=== PATIENT | female | born 1965 | race Caucasian/White ===

== ENCOUNTER 2016-08-20 18:43 | Inpatient (IN) | payer BC ==
[2016-08-20] MEDS ORDERED: SODIUM CHLORIDE 0.9% 1,000 ML IV STA (18:51)
[2016-08-20] MEDS ORDERED: LABETALOL SYRINGE 5 MG/ML IVP STA (18:51)
[2016-08-20] MEDS ORDERED: ASPIRIN 325 MG TAB PO STA (19:00)
[2016-08-20] MEDS ORDERED: MECLIZINE 12.5 MG TAB PO STA (19:01)
--- NOTE | 2016-08-20 19:04 | ED ---
General Adult HPI - General Chief complaint: Dizziness Stated complaint: dizziness, headache, numbness Time Seen by Provider: 08/20/16 18:51 Source: patient, family, RN notes reviewed, old records reviewed Mode of arrival: wheelchair Limitations: no limitations - History of Present Illness Initial comments: This is a 31-year-old female here for evaluation of neurological complaint. Patient has dizziness with collapse and fall secondary severe dizziness. The room is spinning around she is nauseous with no vomiting. Patient does have history of high blood pressure high cholesterol. Patient's blood pressure severely elevated today and she states this never been that high. Patient has had episodes like this in the past which she just, nor ignored one on record with. Today was worse to the point where she was again unable to walk, room was spinning around. - Related Data Home Medications Medication Instructions Recorded Confirmed Acetaminophen [Tylenol] 500 mg PO Q4-6H PRN 07/16/15 08/20/16 Ibuprofen [Advil] 200 mg PO Q8HR PRN 07/16/15 08/20/16 Levothyroxine Sodium [Synthroid] 125 mcg PO DAILY 07/16/15 08/20/16 Allergies Allergy/AdvReac Type Severity Reaction Status Date / Time No Known Allergies Allergy Verified 08/20/16 18:49 Review of Systems ROS Statement: Those systems with pertinent positive or pertinent negative responses have been documented in the HPI. ROS Other: All systems not noted in ROS Statement are negative. Past Medical History Past Medical History: Thyroid Disorder History of Any Multi-Drug Resistant Organisms: None Reported Past Surgical History: No Surgical Hx Reported Past Psychological History: No Psychological Hx Reported Smoking Status: Former smoker Past Alcohol Use History: Occasional Past Drug Use History: None Reported General Exam - General Exam Comments Initial Comments: NIH of 0, no nystagmus noted Limitations: no limitations General appearance: alert, in no apparent distress Head exam: Present: atraumatic, normocephalic, normal inspection Eye exam: Present: normal appearance, PERRL, EOMI. Absent: scleral icterus, conjunctival injection, periorbital swelling ENT exam: Present: normal exam, mucous membranes moist Neck exam: Present: normal inspection. Absent: tenderness, meningismus, lymphadenopathy Respiratory exam: Present: normal lung sounds bilaterally. Absent: respiratory distress, wheezes, rales, rhonchi, stridor Cardiovascular Exam: Present: regular rate, normal rhythm, normal heart sounds. Absent: systolic murmur, diastolic murmur, rubs, gallop, clicks GI/Abdominal exam: Present: soft, normal bowel sounds. Absent: distended, tenderness, guarding, rebound, rigid Extremities exam: Present: normal inspection, full ROM, normal capillary refill. Absent: tenderness, pedal edema, joint swelling, calf tenderness Back exam: Present: normal inspection Neurological exam: Present: alert, oriented X3, CN II-XII intact Psychiatric exam: Present: normal affect, normal mood Skin exam: Present: warm, dry, intact, normal color. Absent: rash Course Vital Signs 08/20/16 18:46 Temperature 97.0 F L Pulse Rate 92 Respiratory 18 Rate Blood Pressure 200/91 O2 Sat by Pulse 100 Oximetry - Reevaluation(s) Reevaluation #1: 08/20/16 19:03 Patient gotten up and attempted to walk, patient very dizzy and unsteady in her gait EKG Findings - EKG Comments: EKG Findings:: EKG shows normal sinus rhythm rate of 64, VT 154, QRS 86, QTC 369 Medical Decision Making - Medical Decision Making 51 female ER for evaluation of dizziness and vertigo dizziness SOA she's had before but was severe today bringing her to her knees. Patient was unable to walk. Patient saw having difficulty walking. Patient does have high blood pressure high cholesterol as severely elevated blood pressure today. Patient will be admitted to the hospital for neurological evaluation, given aspirin Disposition Clinical Impression: CVA (cerebral vascular accident), Vertigo, Hypertensive emergency Disposition: ADMITTED IP TO THIS [facility] Condition: Fair Referrals: Manish Plasencia Jr, [Primary Care Provider] - 1-2 days
[2016-08-20] MEDS ORDERED: hydrALAZINE HCL 20 MG/ML 1 ML VIAL IVP PRN (19:18)
[2016-08-20] MEDS: SODIUM CHLORIDE 0.9% 1,000 ML IV SCH (19:35)
[2016-08-20 19:42] LABS: Basophils % (A) 1 %; CH 32.1; CHCM 34.1; Eosinophils # (A) 0.1 k/uL (0-0.7); Eosinophils % (A) 2 %; HCT 41.2 % (34.0-46.0); HDW 2.47; Luc # (Auto) 0.13; Luc % (Auto) 3; Lymphocytes # (A) 1.4 k/uL (1.0-4.8); Lymphocytes % (A) 30 %; MCHC 33.9 g/dL (31.0-37.0); MCV 94.5 fL (80.0-100.0); Mean Platelet Volume 9.7; Monocytes # (A) 0.2 k/uL (0-1.0); Monocytes % (A) 5 %; Neutrophils # (A) 2.7 k/uL (1.3-7.7); Neutrophils % (A) 60 %; RBC 4.36 m/uL (3.80-5.40); RDW 13.4 % (11.5-15.5); WBC 4.5 k/uL (3.8-10.6)
[2016-08-20 19:50] LABS: ALT 28 U/L (9-52); AST 21 U/L (14-36); Alkaline Phosphatase 68 U/L (38-126); Anion Gap 10 mmol/L; Blood Urea Nitrogen 17 mg/dL (7-17); Carbon Dioxide 26 mmol/L (22-30); Chloride 107 mmol/L (98-107); Glucose 110 mg/dL (74-99); Magnesium 1.9 mg/dL (1.6-2.3); Non-African American GFR(MDRD) >60 (>60 ml/min/1.73 sqM); Phosphorous 3.2 mg/dL (2.5-4.5); Potassium 3.6 mmol/L (3.5-5.1); Sodium 143 mmol/L (137-145); Total Bilirubin 0.5 mg/dL (0.2-1.3); Total Protein 7.2 g/dL (6.3-8.2)
[2016-08-20 19:52] LABS: Partial Thromboplastin Time 25.7 sec (22.0-30.0)
[2016-08-20 19:54] LABS: Prothrombin Time 10.3 sec (9.0-12.0)
--- NOTE | 2016-08-20 20:01 | CT ---
EXAMINATION TYPE: CT brain wo con DATE OF EXAM: 08/20/2016 7:55 PM COMPARISON: NONE HISTORY: Dizziness and NGUYEN. CT DLP: 977.7 mGycm Automated exposure control for dose reduction was used. FINDINGS: There is no acute intracranial hemorrhage, mass effect, or midline shift identified. The ventricles and sulci are within normal limits in size. The globes are intact and the visualized sinuses are moi ar. IMPRESSION: No acute intracranial hemorrhage, mass effect, or midline shift is seen.
[2016-08-20 20:06] LABS: Creatine Kinase 116 U/L (30-135)
[2016-08-20 20:19] LABS: Creatine Kinase MB 0.8 ng/mL (0.0-2.4); Troponin I <0.012 ng/mL (0.000-0.034)
[2016-08-20 21:23] VITALS: BMI 25.4
[2016-08-21] MEDS: SODIUM CHLORIDE 0.9% 1,000 ML IV SCH ×2 (05:15→13:57)
[2016-08-21 08:34] LABS: Cholesterol 246 mg/dL (<200); HDL Cholesterol 56 mg/dL (40-60); Triglycerides 134 mg/dL (<150)
[2016-08-21] MEDS ORDERED: Potassium Replacement Protocol 1 EACH MISC MISCELLANE PRN (09:18)
[2016-08-21] MEDS ORDERED: ACETAMINOPHEN TAB 325 MG TAB PO PRN (09:19)
--- NOTE | 2016-08-21 09:25 | US ---
EXAMINATION TYPE: US carotid duplex BILAT DATE OF EXAM: 08/21/2016 9:05 AM COMPARISON: NONE CLINICAL HISTORY: Stenosis. dizziness and vertigo per patient EXAM MEASUREMENTS: RIGHT: Peak Systolic Velocity (PSV) cm/sec ----- Right CCA: 65.3 ----- Right ICA: 87.1 ----- Right ECA: 46.2 ICA/CCA ratio: 1.3 RIGHT: End Diastole cm/sec ----- Right CCA: 20.0 ----- Right ICA: 42.2 ----- Right ECA: 13.5 LEFT: Peak Systolic Velocity (PSV) cm/sec ----- Left CCA: 108.3 ----- Left ICA: 83.4 ----- Left ECA: 79.0 ICA/CCA ratio: 0.8 LEFT: End Diastole cm/sec ----- Left CCA: 46.2 ----- Left ICA: 39.5 ----- Left ECA: 23.0 VERTEBRALS (direction of flow): Right Vertebral: Antegrade Left Vertebral: Antegrade Grayscale, color Doppler, spectral Doppler imaging performed of the carotid arteries. IMPRESSION: No hemodynamic significant stenosis of the proximal internal carotid arteries bilaterall y by Doppler criteria, and indirect measurement of carotid stenosis
[2016-08-21] MEDS ORDERED: POTASSIUM CHLORIDE ER 20 MEQ TAB.ER PO SCH (10:00)
[2016-08-21] MEDS: LEVOTHYROXINE 125 MCG TAB PO SCH (10:58)
--- NOTE | 2016-08-21 11:50 | P.HPIM ---
History of Present Illness H&P Date: 08/21/16 Chief Complaint: Headache with vertigo This is a pleasant 51-year-old female, patient of my nurse practitioner, Jane Knox, who experienced severe headache while out shopping one day ago. She reports the headache was severe pressure-like in the occiput. She indicates she became very dizzy as well with this. The symptoms abated slightly, but the vertigo continued. She describes everything was spinning with any motion. She also reports a generalized sense of body numbness. She denies any localized weakness or trouble speaking. The symptoms continued and she came to the emergency room to be seen and evaluated. She was found to have significantly elevated blood pressure this time. She has no history of hypertension. She does have a past history of migraine headache, does not have one in years. She is now being seen for further evaluation. Overnight she is been pain-free. Vertigo free. Review of Systems All systems: negative Constitutional: Denies chills, Denies fever Eyes: denies blurred vision, denies pain Ears, nose, mouth and throat: Denies headache, Denies sore throat Cardiovascular: Denies chest pain, Denies shortness of breath Respiratory: Denies cough Gastrointestinal: Denies abdominal pain, Denies diarrhea, Denies nausea, Denies vomiting Genitourinary: Denies dysuria, Denies hematuria Musculoskeletal: Denies myalgias Integumentary: Denies pruritus, Denies rash Neurological: Denies numbness, Denies weakness Psychiatric: Denies anxiety, Denies depression Endocrine: Denies fatigue, Denies weight change Past Medical History Past Medical History: Hyperlipidemia, Neurologic Disorder (Questionable migraine history), Thyroid Disorder History of Any Multi-Drug Resistant Organisms: None Reported Past Surgical History: No Surgical Hx Reported Past Anesthesia/Blood Transfusion Reactions: No Reported Reaction Past Psychological History: No Psychological Hx Reported Smoking Status: Former smoker Past Alcohol Use History: Occasional Past Drug Use History: None Reported - Past Family History Father Family Medical History: Myocardial Infarction ([place]) Mother Family Medical History: Liver Disease Medications and Allergies Home Medications Medication Instructions Recorded Confirmed Type Levothyroxine Sodium [Synthroid] 125 mcg PO DAILY 07/16/15 08/20/16 History Naproxen Sodium [Aleve] 220 mg PO DAILY PRN 08/20/16 08/20/16 History Allergies Allergy/AdvReac Type Severity Reaction Status Date / Time No Known Allergies Allergy Verified 08/20/16 19:50 Physical Exam Vitals: Vital Signs Temp Pulse Pulse Resp BP BP Pulse Ox 08/21/16 08:35 97 F L 62 12 131/67 94 L 08/21/16 04:00 97.1 F L 68 18 115/53 97 08/21/16 00:00 97.1 F L 78 18 131/69 97 08/20/16 21:16 96.1 F L 70 18 148/74 98 08/20/16 20:50 96.1 F L 70 18 148/74 98 08/20/16 20:04 85 14 100 08/20/16 19:53 68 16 137/75 100 08/20/16 19:36 68 16 130/68 100 08/20/16 19:31 77 16 171/76 100 Intake and Output 08/20/16 08/21/16 08/21/16 22:59 06:59 14:59 Intake Total 800 Balance 800 Intake: Intake, IV Titration 800 Amount Sodium Chloride 0.9% 1, 800 000 ml @ 100 mls/hr IV . Q10H [facility] Rx#:[id number] Other: # Voids 1 Weight 63.2 kg 63.2 kg GENERAL: Well-appearing, well-nourished and in no acute distress. HEAD: Atraumatic, normocephalic. EYES: Pupils equal round and reactive to light, extraocular movements intact, sclera anicteric, conjunctiva are normal. There is right gaze nystagmus worse than left ENT:nares patent, oropharynx clear without exudates. Moist mucous membranes. NECK: Normal range of motion, supple without lymphadenopathy or JVD, no thyromegaly LUNGS: Breath sounds clear to auscultation bilaterally and equal. No wheezes rales or rhonchi. HEART: Regular rate and rhythm without murmurs, rubs or gallops.S1S2 Normal ABDOMEN: Soft, nontender, normoactive bowel sounds. No guarding, no rebound. No masses appreciated. EXTREMITIES: Normal range of motion, no pitting or edema. No clubbing or cyanosis. NEUROLOGICAL: Cranial nerves II through XII grossly intact. Normal speech, normal gait. Strength is 5 out of 5 in both upper and lower extremities. PSYCH: Normal mood, normal affect. SKIN: Warm, Dry, normal turgor, no rashes or lesions noted. Results CBC & Chem 7: 08/20/16 19:29 08/20/16 19:29 Labs: Abnormal Lab Results - Last 24 Hours (Table) 08/20/16 08/21/16 Range/Units 19:29 08:11 Glucose 110 H (74-99) mg/dL Cholesterol 246 H (<200) mg/dL LDL Cholesterol, Calc 163 H (0-99) mg/dL Thrombosis Risk Factor Assmnt - DVT/VTE Prophylaxis DVT/VTE Prophylaxis: Mechanical Prophylaxis ordered (SCDs and Jobst hose are in place) - Choose All That Apply Each Factor Represents 1 point: Age 41-60 years Thrombosis Risk Factor Assessment Total Risk Factor Score: 1 Thrombosis Risk Factor Assessment Level: Low Risk Assessment and Plan (1) Hyperlipemia Status: Chronic (2) Hypothyroidism Status: Chronic (3) CVA (cerebral vascular accident) Status: Acute (4) Hypertensive emergency Status: Acute (5) Vertigo Status: Acute Plan: Vertigo with headache, suspect CVA, present on admission, symptoms resolved: CT scan of the brain was negative, carotid Dopplers negative, await 2-D echo and MRI/MRA brain, await neurological consultation. Continue aspirin Accelerated hypertension, present admission, resolved: Continue metoprolol. Hyperlipidemia: She not started treatment given to her by a nurse practitioner, I'll add atorvastatin, 40 mg Hypothyroidism: She'll continue on Synthroid, will check a TSH and free T4 DVT prophylaxis: She'll continue on SCDs and Jobst stockinette's. GI prophylaxis: Add famotidine. We'll await her upcoming tests and pension consultant recommendations. She'll be reevaluated in the next 24 hours.
[2016-08-21 12:52] LABS: Potassium 4.4 mmol/L (3.5-5.1)
[2016-08-21] MEDS: FAMOTIDINE 20 MG TAB PO SCH (13:47)
[2016-08-21] MEDS: METOPROLOL SUCCINATE (ER) 50 MG TAB.ER.24H PO SCH (13:47)
--- NOTE | 2016-08-21 14:05 | P.CNNES ---
History of Present Illness Consult date: 08/21/16 Requesting physician: Madi Hernandez Reason for Consult: CVA Chief complaint: Dizziness History of Present Illness: patient is a 31-year-old female being consult on by neurology for dizziness with possible CVA. Patient has dizziness with collapse and fall secondary to severe dizziness. Patient states the room is spinning around her. He stated that she was nauseous with no vomiting prior to arrival DDD. Patient does have a history of hypertension and hypercholesterolemia. Patient's blood pressure was severely elevated on presentation at the ED. Blood pressure was greater than 200. Patient states she has had episodes like this in the past which she just ignored. Prior to presenting at the ED this episode was the worst she had experienced. Patient describes dizziness with exertion as well as bilateral global head pain described as a pressure-type squeezing pain. She states she is noncompliant with her medications to manage her blood pressure and her cholesterol as provided by her primary care provider. She further states these incidents have been occurring for greater than 3 months. In the past she has used over-the- counter medications and analgesia. states she does have a headache/migraine history from her teens and early 20s but the migraine level headaches had stopped years ago. When contacting the patient today, the patient denies any dizziness or head pain. Patient is alert oriented 3, supine in bed resting. She is in no acute distress. Review of Systems all systems not noted in HPI previously above are considered negative. Past Medical History Past Medical History: Hyperlipidemia, Neurologic Disorder (Questionable migraine history), Thyroid Disorder History of Any Multi-Drug Resistant Organisms: None Reported Past Surgical History: No Surgical Hx Reported Past Anesthesia/Blood Transfusion Reactions: No Reported Reaction Past Psychological History: No Psychological Hx Reported Smoking Status: Former smoker Past Alcohol Use History: Occasional Past Drug Use History: None Reported - Past Family History Father Family Medical History: Myocardial Infarction ([place]) Mother Family Medical History: Liver Disease Medications and Allergies Home Medications Medication Instructions Recorded Confirmed Type Levothyroxine Sodium [Synthroid] 125 mcg PO DAILY 07/16/15 08/20/16 History Naproxen Sodium [Aleve] 220 mg PO DAILY PRN 08/20/16 08/20/16 History Allergies Allergy/AdvReac Type Severity Reaction Status Date / Time No Known Allergies Allergy Verified 08/20/16 19:50 Physical Examination - Vital Signs Vital Signs: Vital Signs Temp Pulse Pulse Resp BP BP Pulse Ox 08/21/16 08:35 97 F L 62 12 131/67 94 L 08/21/16 04:00 97.1 F L 68 18 115/53 97 08/21/16 00:00 97.1 F L 78 18 131/69 97 08/20/16 21:16 96.1 F L 70 18 148/74 98 08/20/16 20:50 96.1 F L 70 18 148/74 98 08/20/16 20:04 85 14 100 08/20/16 19:53 68 16 137/75 100 08/20/16 19:36 68 16 130/68 100 08/20/16 19:31 77 16 171/76 100 Intake and Output 08/20/16 08/21/16 08/21/16 22:59 06:59 14:59 Intake Total 800 Balance 800 Intake: Intake, IV Titration 800 Amount Sodium Chloride 0.9% 1, 800 000 ml @ 100 mls/hr IV . Q10H [facility] Rx#:[id number] Other: # Voids 1 Weight 63.2 kg 63.2 kg Results - Laboratory Findings CBC and BMP: 08/20/16 19:29 08/21/16 12:35 Abnormal Lab Findings: Abnormal Labs 08/20/16 08/21/16 08/21/16 19:29 08:11 12:35 Glucose 110 H Cholesterol 246 H LDL Cholesterol, Calc 163 H TSH 6.610 H Assessment and Plan (1) Hypertensive emergency Status: Acute (2) Hyperlipemia Status: Chronic Plan: 1. Headache secondary to Hypertensive crisis: Patient symptoms and physical exam are more reflective headache likely secondary to hypertensive crisis versus TIA/CVA. Patient's blood pressure was greater than 200. She states these headaches occur when she is under exertion but resolved when she relaxes. CT of the brain was negative along with carotid Doppler. EEG is pending. Patient had no remaining symptoms on exam. Recommend strict blood pressure control. Follow-up outpatient once blood pressure is under control. Patient may be cleared from a neurological standpoint if her EEG returns within normal limits and if MRI of the brain is unremarkable. If EEG is still pending but taken, the patient can be discharged and followed up outpatient in our office within 10-14 days, but MRI must be taken and results read prior to discharge. 2. Hypercholesterolemia: Patient is known to have hypercholesterolemia has noted by her lipid panel. Primary care provider started Lipitor 40 mg. Continue Lipitor at existing dose and frequency at discharge. Recheck lipid levels in 90 days. Continue 81 mg aspirin daily outpatient on an ongoing basis. Status: As noted above I discussed the patient's pertinent medical information with Dr. Portillo. He agrees with the plan of care as implemented.
[2016-08-21] MEDS: ASPIRIN 325 MG TAB PO SCH (22:19)
[2016-08-22] MEDS: SODIUM CHLORIDE 0.9% 1,000 ML IV SCH ×2 (06:22→10:35)
[2016-08-22] MEDS: LEVOTHYROXINE 125 MCG TAB PO SCH (06:23)
[2016-08-22 06:43] LABS: Basophils % (A) 1 %; CH 31.3; CHCM 33.3; Eosinophils # (A) 0.1 k/uL (0-0.7); Eosinophils % (A) 3 %; HDW 2.49; Luc # (Auto) 0.17; Luc % (Auto) 4; Lymphocytes # (A) 1.3 k/uL (1.0-4.8); Lymphocytes % (A) 31 %; MCH 31.5 pg (25.0-35.0); MCHC 33.4 g/dL (31.0-37.0); MCV 94.5 fL (80.0-100.0); Mean Platelet Volume 9.9; Monocytes # (A) 0.2 k/uL (0-1.0); Monocytes % (A) 5 %; Neutrophils # (A) 2.3 k/uL (1.3-7.7); Neutrophils % (A) 56 %; RBC 4.76 m/uL (3.80-5.40); RDW 13.4 % (11.5-15.5); WBC (Perox) 3.94
[2016-08-22 06:54] LABS: Anion Gap 9 mmol/L; Blood Urea Nitrogen 13 mg/dL (7-17); Calcium 9.3 mg/dL (8.4-10.2); Carbon Dioxide 26 mmol/L (22-30); Chloride 107 mmol/L (98-107); Glucose 100 mg/dL (74-99); Non-African American GFR(MDRD) >60 (>60 ml/min/1.73 sqM); Potassium 4.5 mmol/L (3.5-5.1); Sodium 142 mmol/L (137-145)
--- NOTE | 2016-08-22 09:02 | MR ---
EXAMINATION TYPE: MR brain wo/w con DATE OF EXAM: 08/22/2016 8:17 AM COMPARISON: NONE HISTORY: Vertigo TECHNIQUE: Multiplanar, multiecho imaging of the brain was obtained with and without intravenous adm inistration of 13 mL intravenous MultiHance. FINDINGS: Midline structures are unremarkable. There is a normal craniocervical junction. Echoplanar diffusion imaging is normal. There are normal vascular flow voids. The orbits are unremarkable. There is no evidence of a CP angle mass lesion. There is mucoperiosteal disease involving the left maxillary sinus. There is no focal lesion, mass effect or midline shift identified. I do not see evidence of intracran ial blood. Following the intravenous administration of gadolinium, I do not see evidence of abnormal enhancement . IMPRESSION: 1. NO ACUTE INTRACRANIAL ABNORMALITY. 2. 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
[2016-08-22] MEDS: FAMOTIDINE 20 MG TAB PO SCH (09:32)
[2016-08-22] MEDS: ASPIRIN 325 MG TAB PO SCH (09:32)
[2016-08-22] MEDS: METOPROLOL SUCCINATE (ER) 50 MG TAB.ER.24H PO SCH (09:32)
[2016-08-22 09:40] VITALS: TEMP 97
[2016-08-22 12:23] VITALS: BP 126/72; PULSE 52; RESP 16
--- NOTE | 2016-08-22 12:51 | ECHOF ---
Referral Reason:Thrombus MEASUREMENTS -------- HEIGHT: 157.5 cm WEIGHT: 62.6 kg BP: 112/58 RVIDd: 2.7 cm (< 3.3) IVSd: 0.9 cm (0.6 - 1.1) LVIDd: 4.3 cm (3.9 - 5.3) LVPWd: 0.9 cm (0.6 - 1.1) IVSs: 1.5 cm LVIDs: 2.8 cm LVPWs: 1.1 cm LA Diam: 2.9 cm (2.7 - 3.8) LAESV Index (A-L): 17.67 ml/m Ao Diam: 2.5 cm (2.0 - 3.7) AV Cusp: 1.4 cm (1.5 - 2.6) LA Diam: 2.7 cm (2.7 - 3.8) MV EXCURSION: 6.985 mm (> 18.000) MV EF SLOPE: 50 mm/s (70 - 150) EPSS: 0.4 cm MV E Moses: 0.85 m/s MV DecT: 223 ms MV A Moses: 0.66 m/s MV E/A Ratio: 1.28 FINDINGS -------- Resting bradycardia (HR<60bpm). This was a technically good study. Left ventricular wall thickness is normal. Overall left ventricular systolic function is normal with, an EF between 55 - 60 %. The right ventricle is normal in size. Normal LA size by volume 22+/-6 ml/m2. The right atrium is normal in size. Aortic valve is trileaflet and is mildly thickened. The mitral valve leaflets are mildly thickened. Mild mitral annular calcification present. There is trace mitral regurgitation. Trace tricuspid regurgitation present. The pulmonic valve was not well visualized. The aortic root size is normal. Normal inferior vena cava with normal inspiratory collapse consistent with estimated right atrial pressure of 5 mmHg. There is no pericardial effusion. CONCLUSIONS -------- 1. Resting bradycardia (HR<60bpm). 2. Mild mitral annular calcification present. 3. There is trace mitral regurgitation. 4. Trace tricuspid regurgitation present. 5. The pulmonic valve was not well visualized. 6. The aortic root size is normal. 7. Normal inferior vena cava with normal inspiratory collapse consistent with estimated right atrial pressure of 5 mmHg. 8. There is no pericardial effusion. 9. This was a technically good study. 10. Left ventricular wall thickness is normal. 11. Overall left ventricular systolic function is normal with, an EF between 55 - 60 %. 12. The right ventricle is normal in size. 13. Normal LA size by volume 22+/-6 ml/m2. 14. The right atrium is normal in size. 15. Aortic valve is trileaflet and is mildly thickened. 16. The mitral valve leaflets are mildly thickened. DELINQUENCY PREVENTION OFFICER: Ronan Cabrera RDCS
--- NOTE | 2016-08-22 13:42 | P.DS ---
Providers Date of admission: 08/20/16 19:00 Expected date of discharge: 08/22/16 Attending physician: Laron Erickson Consults: Neurology Primary care physician: [facility] Hospital Course: Patient is a 51-year-old female, patient of Jane Knox nurse practitioner in the outpatient setting, with medical history significant for hyperlipidemia, hypertension, hypothyroidism, and migraines. Patient presented to the emergency department complaints of headache and dizziness stating that the room started to spin around her associated with nausea but no vomiting. In the emergency department patient was found to have hypertensive urgency with systolic blood pressure of 200. Patient reports similar episodes in the past but not quite as severe as this time. Patient did report noncompliance with prescribed medications prior to admission. CAT scan of the brain was negative along with carotid Doppler. MRI of the brain with no acute intracranial abnormality. Echocardiogram with Doppler showed preserved LV function with EF between 55-60%. Patient was evaluated and cleared for discharge by neurology with follow-up in the outpatient setting. EEG taken but pending prior to discharge. Patient improved significantly during her hospital stay with no further symptoms of headache or vertigo. Patient was felt stable for discharge with close follow-up in the outpatient setting. Discharge diagnoses: 1. Hyperlipidemia. 2. Hypothyroidism. 3. Hypertensive emergency, present on admission, resolved. 4. Vertigo suspect secondary to hypertensive emergency, resolved. 5. History of migraines. 6. History of hypertension. The above impression and plan have been discussed and directed by Dr. Plasencia. Genesis TOUSSAINT acting as scribe for Dr. Plasencia. Pertinent Studies: Brain CT; EKG; carotid Doppler study; brain MRI; echocardiogram with Doppler Patient Condition at Discharge: Fair Plan - Discharge Summary New Discharge Prescriptions: Aspirin 81 mg PO DAILY #30 chewable Atorvastatin [Lipitor] 40 mg PO HS #30 tablet Metoprolol Succinate (ER) [Toprol XL] 50 mg PO DAILY #30 tab.er.24h Discharge Medication List Levothyroxine Sodium [Synthroid] 125 mcg PO DAILY 07/16/15 [History] Aspirin 81 mg PO DAILY #30 chewable 08/22/16 [Rx] Atorvastatin [Lipitor] 40 mg PO HS #30 tablet 08/22/16 [Rx] Metoprolol Succinate (ER) [Toprol XL] 50 mg PO DAILY #30 tab.er.24h 08/22/16 [Rx ] Follow up Appointment(s)/Referral(s): Manish Plasencia Jr, DO [Primary Care Provider] - 08/24/16 8:45 am Jessy Portillo MD [STAFF PHYSICIAN] - 10 Days (OFFICES WILL CALL WITH AN APPOINTMENT DATE AND TIME) Patient Instructions/Handouts: Vertigo (DC), Hypertensive Crisis (DC) Discharge Disposition: HOME SELF-CARE Pending Studies Pending Results: EEG
--- NOTE | 2016-08-22 19:41 | P.PN ---
Subjective Principal diagnosis: Dizziness patient is a 51-year-old female being followed by neurology for dizziness. Patient has disease with collapse and fall secondary to severe dizziness. Patient states that the room was spinning around her. She stated that she was nauseous with no vomiting prior to arrival at the ED. Patient does have a history of hypertension and hypercholesterolemia. Patient's blood pressure was severely elevated on presentation of the ED. Blood pressure was greater than 200. Patient stated that she had episodes like this in the past which she just ignored. Prior to presenting at the ED this episode was the worse she had experienced. Patient described dizziness with exertion as well as bilateral global head pain described as a pressure-type squeezing pain. She states she is noncompliant with her medications to manage her blood pressure and her cholesterol as provided by her primary care provider. She further states events have been occurring for greater than 3 months. In the past she used [id number] medications and analgesia. States she does have a headache/migraine history from her teens and early 20s but the migraine level headaches have stopped years ago. On contact today, the patient was supine in bed in no acute distress and did not have any dizziness or head pain. Her daughter was at her bedside. Patient is alert and oriented 3. She states she is back to baseline. Objective - Vital Signs Vital signs: Vital Signs Temp 97.0 F L 08/22/16 12:00 Pulse 52 L 08/22/16 12:00 Resp 16 08/22/16 12:00 BP 126/72 08/22/16 12:00 Pulse Ox 99 08/22/16 12:00 Intake & Output 08/22/16 08/22/16 08/23/16 06:59 18:59 06:59 Intake Total 1280 Balance 1280 Weight 62.8 kg Intake: IV 900 Sodium Chloride 0.9% 1, 900 000 ml @ 100 mls/hr IV . Q10H ZELDA Rx#:[id number] Oral 380 Other: # Voids 2 - Exam Constitutional: AOx3, cooperative Head: NC/AT Throat: Supple, no masses Respiratory: No increased work of breathing Cardiac: Regular rate and Rhythm GI: non tender, non distended Musculoskeletal: Vp Home Health strengths are equal bilaterally 5/5, Lower extremity strengths are equal bilaterally at 5/5. Neurological: CN II-XII in tact, patient was AOx3, speech and language are normal, no unilateralizing weakness, no seizure activity note on physical exam. Sensation was normal. Integementary: no rash, no erythema Psychiatric: mood and affect appropriate - Labs CBC & Chem 7: 08/22/16 06:20 08/22/16 06:20 Labs: Abnormal Lab Results - Last 24 Hours (Table) 08/22/16 Range/Units 06:20 Glucose 100 H (74-99) mg/dL Assessment and Plan (1) Hypertensive emergency Status: Acute (2) Hyperlipemia Status: Chronic Plan: 1. Headache secondary to Hypertensive crisis: Patient symptoms and physical exam are more reflective headache likely secondary to hypertensive crisis versus TIA/CVA. Patient's blood pressure was greater than 200. She states these headaches occur when she is under exertion but resolved when she relaxes. CT of the brain was negative along with carotid Doppler. EEG is pending. Patient had no remaining symptoms on exam. Recommend strict blood pressure control. Follow-up outpatient once blood pressure is under control. Patient may be cleared from a neurological standpoint if her EEG returns within normal limits MRI of the brain was unremarkable for any acute process. Chronic sinus process noted. Patient was referred to primary care provider. 2. Hypercholesterolemia: Patient is known to have hypercholesterolemia as noted by her lipid panel. Primary care provider started Lipitor 40 mg. Continue Lipitor at existing dose and frequency at discharge. Recheck lipid levels in 90 days. Continue 81 mg aspirin daily outpatient on an ongoing basis. Status: Patient can be cleared for discharge from a neurological standpoint. I discussed the patient's pertinent medical information with Dr. Portillo. He agrees with the plan of care as implemented.
--- NOTE | 2016-08-23 14:29 | EEG ---
DATE OF SERVICE: 08/22/2016 INDICATIONS FOR EXAMINATION: Stroke and dizziness. AGE: 51Y DESCRIPTION OF PROCEDURE: This EEG was performed using a 21 channel digital electroencephalograph, following international 10-20 system. DESCRIPTION OF THE RECORDING: From the beginning of the tracing, with the patient's eyes closed, the background rhythm was mostly consisting of 8-9 Hz alpha frequency in the posterior occipital leads. No obvious asymmetry was seen. Photic stimulation was performed with good driving response seen. No pathological waves were elicited. Hyperventilation was not performed. Rare movement artifacts are seen. The patient remains awake throughout the tracing. No epileptiform discharges are seen. Her EKG lead showed regular rate and rhythm. INTERPRETATION: This awake EEG can be considered within normal limits. There was no asymmetry seen. No epileptiform discharges were noticed. The absence of epileptiform discharges does not rule out the diagnosis of epilepsy. Therefore, clinical correlation is recommended.
== END 2016-08-22 14:14 | disposition home or self-care (01) | DRG 305 ==
LOC: EC 18:43 → 6SEL 19:00
PROVIDERS: ADMIT Family Medicine; ATTEND Family Medicine
DX: I16.1 Hypertensive emergency (principal); E03.9 Hypothyroidism, unspecified; I10 Essential (primary) hypertension; E78.5 Hyperlipidemia, unspecified; E78.00 Pure hypercholesterolemia, unspecified; R51 Headache; Z91.14 Patient's other noncompliance with medication regimen; Z87.891 Personal history of nicotine dependence; Z79.899 Other long term (current) drug therapy; Z82.49 Family history of ischemic heart disease and other diseases of the circulatory system
CPT/HCPCS: 36415; 70450; 70553; 80048; 80053; 80061; 82550; 82553; 83090; 83735; 84100; 84132; 84439; 84443; 84484; 85025; 85610; 85730; 93005; 93306; 93880; 95816; 96374; 99285

== ENCOUNTER → 2016-10-14 | Outpatient (CLI) | payer BC ==
--- NOTE | 2016-10-14 14:39 | MM ---
Reason for exam: screening (asymptomatic). Last mammogram was performed 2 years and 7 months ago. History: Patient is postmenopausal. Benign left US cyst aspiration ea add of the left breast, June 22, 2007. Benign right US cyst aspiration ea add of the right breast, June 22, 2007. Benign right US cyst aspiration ea add of the right breast, June 22, 2007. Benign right US cyst aspiration ea add of the right breast, June 22, 2007. Benign right US cyst aspiration ea add of the right breast, June 22, 2007. Benign left US cyst aspiration of the left breast, June 22, 2007. Benign right US cyst aspiration of the right breast, June 22, 2007. Cyst aspiration of the right breast. Physical Findings: A clinical breast exam by your physician is recommended on an annual basis and results should be correlated with mammographic findings. MG Screening Mammo w CAD Bilateral CC and MLO view(s) were taken. Prior study comparison: March 14, 2014, right breast MG work up mamm w CAD RT. March 07, 2014, bilateral MG screening mammo w CAD. The breast tissue is heterogeneously dense. This may lower the sensitivity of mammography. Focal asymmetry in the upper outer left breast. This finding is changed when compared with previous exams. ASSESSMENT: Incomplete: need additional imaging evaluation, BI-RAD 0 RECOMMENDATION: Special view mammogram of the left breast. If lesion persists on supplemental views, image directed ultrasound is recommended. [facility] will attempt to contact patient to return for supplemental views and ultrasound if indicated.
== END | disposition home or self-care (01) ==
LOC: RADMAMWWP 07:38
PROVIDERS: ATTEND Family Medicine
DX: Z12.31 Encounter for screening mammogram for malignant neoplasm of breast (principal); R92.2 Inconclusive mammogram

== ENCOUNTER → 2016-10-25 | Outpatient (CLI) | payer BC ==
--- NOTE | 2016-10-25 08:36 | MM ---
Reason for exam: additional evaluation requested from abnormal screening. Last mammogram was performed less than 1 month ago. History: Patient is postmenopausal. Benign left US cyst aspiration ea add of the left breast, June 22, 2007. Benign right US cyst aspiration ea add of the right breast, June 22, 2007. Benign right US cyst aspiration ea add of the right breast, June 22, 2007. Benign right US cyst aspiration ea add of the right breast, June 22, 2007. Benign right US cyst aspiration ea add of the right breast, June 22, 2007. Benign left US cyst aspiration of the left breast, June 22, 2007. Benign right US cyst aspiration of the right breast, June 22, 2007. Cyst aspiration of the right breast. Physical Findings: Nurse did not find any significant physical abnormalities on exam. MG Work Up Mamm w CAD LT LM, spot compression CC, and spot compression MLO view(s) were taken of the left breast. Prior study comparison: October 14, 2016, bilateral MG screening mammo w CAD. March 14, 2014, right breast MG work up mamm w CAD RT. March 07, 2014, bilateral MG screening mammo w CAD. The breast tissue is heterogeneously dense. This may lower the sensitivity of mammography. There is no discrete abnormality. No significant new findings when compared with previous films. These results were verbally communicated with the patient and result sheet given to the patient on 10/25/16. ASSESSMENT: Benign, BI-RAD 2 RECOMMENDATION: Return to routine screening mammogram schedule for both breasts. Back on schedule.
== END | disposition home or self-care (01) ==
LOC: RADMAMWWP 07:31
PROVIDERS: ATTEND Family Medicine
DX: R92.8 Other abnormal and inconclusive findings on diagnostic imaging of breast (principal)

== ENCOUNTER → 2018-05-14 | Outpatient (CLI) | payer BC ==
--- NOTE | 2018-05-17 13:38 | MM ---
Reason for exam: screening (asymptomatic). Last mammogram was performed 1 year and 7 months ago. History: Patient is postmenopausal. Benign left US cyst aspiration ea add of the left breast, June 22, 2007. Benign right US cyst aspiration ea add of the right breast, June 22, 2007. Benign right US cyst aspiration ea add of the right breast, June 22, 2007. Benign right US cyst aspiration ea add of the right breast, June 22, 2007. Benign right US cyst aspiration ea add of the right breast, June 22, 2007. Benign left US cyst aspiration of the left breast, June 22, 2007. Benign right US cyst aspiration of the right breast, June 22, 2007. Cyst aspiration of the right breast. Physical Findings: A clinical breast exam by your physician is recommended on an annual basis and results should be correlated with mammographic findings. MG Screening Mammo w CAD Bilateral CC and MLO view(s) were taken. Prior study comparison: October 25, 2016, left breast MG work up mamm w CAD LT. October 14, 2016, bilateral MG screening mammo w CAD. The breast tissue is heterogeneously dense. This may lower the sensitivity of mammography. No significant changes when compared with prior studies. ASSESSMENT: Benign, BI-RAD 2 RECOMMENDATION: Routine screening mammogram of both breasts in 1 year.
== END ==
LOC: RADMAMWWP 08:34
PROVIDERS: ATTEND Family Medicine
DX: Z12.31 Encounter for screening mammogram for malignant neoplasm of breast (principal)
CPT/HCPCS: 77067

== ENCOUNTER → 2019-10-18 | Outpatient (CLI) | payer BC ==
--- NOTE | 2019-10-18 13:40 | EST ---
EXERCISE STRESS DATE OF SERVICE: 10/18/2019 AGE: 54 SEX: Fe HT: 62" WT: 148 lbs PROTOCOL: Stress Echo STAGE: 2 DURATION OF EXERCISE: 5:53 minutes HEART RATE REST: 88 BLOOD PRESSURE REST: 126/85 MAXIMUM HEART RATE ACHIEVED: 154 MAXIMUM BLOOD PRESSURE: 203/161 85% MPHR: 139 100% MPHR: 164 METS: 7.1 INDICATIONS: Shortness of breath, vertigo. RESULTS: Baseline EKG revealed normal sinus rhythm with inferolateral nonspecific ST-T abnormality. She walked on standard Terrell protocol for 5 minutes 53 seconds achieved a maximal heart rate of 160 beats per minute which is well above 85% of predicted maximal. She developed some fatigue and shortness of breath but did not have any angina. Rare PVCs were noted initially. EKG revealed more prominent inferolateral ST-segment depression, but given her resting EKG changes, these are considered inconclusive findings. The patient did not have angina. By EKG criteria this is an inconclusive exercise stress test with limited exercise capacity. Baseline echo images revealed normal wall motion wall thickening of all segments. At peak exercise, there was good augmentation of left ventricular wall motion and wall thickening of all segments suggesting that there is no evidence of any stress-induced ischemia on this study. IMPRESSION: 1. Limited exercise capacity, inconclusive stress test by EKG criteria because of resting EKG changes. 2. Normal stress echocardiogram without evidence of ischemia. MMODL / IJN: [id number] /
== END | disposition home or self-care (01) ==
LOC: RADNMMAIN 09:51
PROVIDERS: ATTEND Family Medicine
DX: R94.39 Abnormal result of other cardiovascular function study (principal)
CPT/HCPCS: 93351

== ENCOUNTER → 2019-11-21 | Outpatient (CLI) | payer BC ==
--- NOTE | 2019-11-25 10:38 | MM ---
Reason for exam: screening (asymptomatic). Last mammogram was performed 1 year and 6 months ago. History: Patient is postmenopausal. Benign left US cyst aspiration ea add of the left breast, June 22, 2007. Benign right US cyst aspiration ea add of the right breast, June 22, 2007. Benign right US cyst aspiration ea add of the right breast, June 22, 2007. Benign right US cyst aspiration ea add of the right breast, June 22, 2007. Benign right US cyst aspiration ea add of the right breast, June 22, 2007. Benign left US cyst aspiration of the left breast, June 22, 2007. Benign right US cyst aspiration of the right breast, June 22, 2007. Cyst aspiration of the right breast. Physical Findings: A clinical breast exam by your physician is recommended on an annual basis and results should be correlated with mammographic findings. MG Screening Mammo w CAD Bilateral CC and MLO view(s) were taken. Prior study comparison: May 14, 2018, bilateral MG screening mammo w CAD. October 25, 2016, left breast MG work up mamm w CAD LT. The breast tissue is heterogeneously dense. This may lower the sensitivity of mammography. There is no discrete abnormality. ASSESSMENT: Negative, BI-RAD 1 RECOMMENDATION: Routine screening mammogram of both breasts in 1 year.
== END | disposition home or self-care (01) ==
LOC: RADMAMWWP 16:01
PROVIDERS: ATTEND Family Medicine
DX: Z12.31 Encounter for screening mammogram for malignant neoplasm of breast (principal)
CPT/HCPCS: 77067

== ENCOUNTER 2020-08-28 04:13 | Emergency (ER) | payer BC ==
[2020-08-28] MEDS ORDERED: METOCLOPRAMIDE 5 MG/ML 2 ML VIAL ONE (05:30)
[2020-08-28] MEDS ORDERED: diphenhydrAMINE 50 MG/ML 1 ML VIAL ONE (05:30)
[2020-08-28] MEDS ORDERED: KETOROLAC 15 MG/ML 1 ML VIAL ONE (05:30)
--- NOTE | 2020-08-28 10:04 | CT ---
EXAM: CT Head Without Intravenous Contrast CLINICAL HISTORY: migraine TECHNIQUE: Axial computed tomography images of the head/brain without intravenous contrast. CTDI is 49.27 mGy and DLP is 1129.4 mGy-cm. This CT exam was performed using one or more of the following dose reduction techniques: automated exposure control, adjustment of the mA and/or kV according to patient size, and/or use of iterative reconstruction technique. COMPARISON: No relevant prior studies available. FINDINGS: Brain: Unremarkable. No acute intracranial hemorrhage, edema or abnormal mass-effect. Ventricles: Unremarkable. No ventriculomegaly. Bones/joints: Unremarkable. No acute fracture. Soft tissues: Unremarkable. Sinuses: Unremarkable as visualized. No acute sinusitis. Mastoid air cells: Unremarkable as visualized. No mastoid effusion. IMPRESSION: Negative head/brain CT.
[2020-08-28] MEDS ORDERED: SODIUM CHLORIDE 0.9% 1,000 ML BAG ONE (23:59)
== END 2020-08-28 07:50 | disposition home or self-care (01) ==
LOC: EC 04:13
DX: G43.909 Migraine, unspecified, not intractable, without status migrainosus (principal)
CPT/HCPCS: 70450; 99284; 96374; 96375 ×2; 96361; J1200; J2765; J1885

== ENCOUNTER → 2021-11-18 | Outpatient (CLI) | payer BC ==
--- NOTE | 2021-11-18 12:08 | US ---
EXAMINATION TYPE: US abdomen complete DATE OF EXAM: 11/18/2021 COMPARISON: None CLINICAL HISTORY: 56-year-old female R10.31 RT LOWER QUADRANT ABD PAIN. Patient states she feel somet gayla move in the right side of her abdomen. TECHNIQUE: Multiple sonographic images of the abdomen are obtained. FINDINGS: EXAM MEASUREMENTS: Liver Length: 15.2 cm Gallbladder Wall: 0.3 cm CBD: 0.3 cm Spleen: 8.1 cm Right Kidney: 9.6 x 4.0 x 4.1 cm Left Kidney: 9.6 x 5.1 x 5.8 cm Digital Media Intern notes: Very limited exam due to overlying bowel gas Pancreas: Most of the pancreas is visualized and shows no gross abnormality. Liver: Limited visualization due to bowel gas. Visualized portions appear echogenic. Gallbladder: Extensive mobile calculi within the lumen. No surrounding fluid or wall thickening. Evidence for sonographic Heredia's sign: neg CBD: limited visualization Spleen: wnl, limited visualization Right Kidney: mild hydronephrosis. Lower pole cystic lesion= 1.5 x 1.7 x 1.3 cm Left Kidney: No hydronephrosis or masses seen Upper IVC: wnl Abd Aorta: Distal obscured by bowel gas IMPRESSION: 1. Numerous calculi partially filling the lumen of the gallbladder. 2. Limited visualization of the bile duct. No maxi dilatation seen. 3. Mild right-sided hydronephrosis. Correlate for potential ureteral obstruction.
--- NOTE | 2021-11-18 12:12 | US ---
EXAMINATION TYPE: US pelvic complete DATE OF EXAM: 11/18/2021 COMPARISON: NONE CLINICAL HISTORY: 56-year-old female R10.31 RT LOWER QUADRANT ABD PAIN. Patient states something movi ng right abdomen TECHNIQUE: Transabdominal sonographic images of the pelvis were acquired. 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 Uterus: Retroflexed. Otherwise, within normal limits as visualized 2. Endometrium: wnl 3. Right Ovary: wnl 4. Left Ovary: wnl 5. Bilateral Adnexa: no free fluid 6. Posterior cul-de-sac: no free fluid IMPRESSION: No specific abnormality of the pelvis on transabdominal scanning.
--- NOTE | 2021-11-19 07:56 | MM ---
Reason for Exam: Screening (asymptomatic). Last mammogram was performed 2 year(s) and 0 month(s) ago. Patient History: Menarche at age 11. First Full-Term at age 14. Postmenopausal. Cyst Aspiration on the Right side. 06/22/2007, Benign Cyst Aspiration on the right side. 06/22/2007, Benign Cyst Aspiration on the right side. 06/22/2007, Benign Cyst Aspiration on the right side. 06/22/2007, Benign Cyst Aspiration on the right side. 06/22/2007, Benign Cyst Aspiration on the left side. 06/22/2007, Benign Cyst Aspiration on the left side. 06/22/2007, Benign Cyst Aspiration on the right side. Daughter had breast cancer, bilateral, age 40. Risk Values: Hermelinda 5 year model risk: 2.5%. NCI Lifetime model risk: 13.8%. Prior Study Comparison: 10/25/2016 Left Diagnostic Mammogram, [facility]. 05/14/2018 Bilateral Screening Mammogram, [facility]. 11/21/2019 Bilateral Screening Mammogram, [facility]. Tissue Density: The breast tissue is heterogeneously dense. This may lower the sensitivity of mammography. Findings: Analyzed By CAD. There is no suspicious group of microcalcifications or new suspicious mass in either breast. Overall Assessment: Benign, BI-RAD 2 Management: Screening Mammogram of both breasts in 1 year. A clinical breast exam by your physician is recommended on an annual basis and results should be correlated with mammographic findings. Electronically signed and approved by: Nicholas Wilson M.D. Radiologis
== END | disposition home or self-care (01) ==
LOC: RADMAMWWP 07:28
PROVIDERS: ATTEND Family Medicine
DX: Z12.31 Encounter for screening mammogram for malignant neoplasm of breast (principal); K80.20 Calculus of gallbladder without cholecystitis without obstruction; N13.30 Unspecified hydronephrosis; Z78.0 Asymptomatic menopausal state; Z80.3 Family history of malignant neoplasm of breast
CPT/HCPCS: 76700; 76856; 77067

== ENCOUNTER → 2022-01-05 | Outpatient (CLI) | payer BC ==
--- NOTE | 2022-01-05 22:01 | CT ---
EXAMINATION TYPE: CT urogram wo/w con DATE OF EXAM: 01/05/2022 COMPARISON: 11/18/2021 ultrasound INDICATION: Hydronephrosis and pelvic pain. DLP: 1525.3 mGycm, Automated exposure control for dose reduction was used. CONTRAST: 100ml mL of Isovue 300. Study performed without Oral Contrast TECHNIQUE: Axial images were obtained from above the diaphragm to the pubic rami in the axial plane a t 5 mm thick sections. Reconstructed images are reviewed on the computer in the coronal plane. FINDINGS: Limited CT sections are obtained the lung bases. The lung bases are clear. CT ABDOMEN: Liver: Normal Spleen: Normal Pancreas: Normal Adrenal glands: The adrenal glands are normal. Gallbladder: Normal Kidneys: No masses are evident. A punctate calcification without obstruction is at the inferior pole left kidney. No hydronephrosis is present. On postcontrast imaging a peripelvic cyst at the inferio r pole measuring 23 Hounsfield units is identified. Significant hydronephrosis is not evident. The ur eters appear symmetrical. Ureters follow a normal caliber course and contour to the urinary bladder. Urinary bladder fills normally without intraluminal or extramural defects. Delayed images were obtai kimberli through the kidneys. Three-D reconstructed images are reviewed on the computer. This perform a separate computer by the te chnologist and presented Aorta: Vascular calcification is within the aorta. Inferior vena cava: Normal. CT PELVIS: Loops of bowel within the abdomen and pelvis are normal. The study is performed without oral cont rast limiting bowel evaluation. Few diverticuli within the sigmoid colon Appendix: Normal as visualized. Urinary bladder: Normal. Genitourinary structures: Uterus appears normal. Adnexa are normal. Osseous structures: No suspicious lytic or sclerotic lesions. IMPRESSIONS: 1. 1. No hydronephrosis. Inferior pole right peripelvic cyst is identified. Ureters and renal collecting system appear normal to the urinary bladder.
== END | disposition home or self-care (01) ==
LOC: RADCTMAIN 08:28
PROVIDERS: ATTEND Urology
DX: N13.30 Unspecified hydronephrosis (principal); N28.1 Cyst of kidney, acquired
CPT/HCPCS: 74178; 74400; Q9967

== ENCOUNTER → 2022-03-07 | Outpatient (CLI) | payer BC ==
[2022-03-07 18:11] LABS: African American GFR (CKD) 71.4 (60.0-200.0); Albumin 4.8 g/dL (3.8-4.9); Anion Gap 8.7 mmol/L (10.00-18.00); BUN/Creat Ratio 11.6 Ratio (12.00-20.00); Blood Urea Nitrogen 11.6 mg/dL (9.0-27.0); Calcium 9.5 mg/dL (8.7-10.3); Carbon Dioxide 28.3 mmol/L (20.0-27.5); Globulin 2.4 g/dL (1.6-3.3); Non-African American GFR(CKD) 61.6 (60.0-200.0); Potassium 4.4 mmol/L (3.5-5.5); Total Bilirubin 0.4 mg/dL (0.30-1.20); Total Protein 7.2 g/dL (6.2-8.2)
[2022-03-07 18:50] LABS: HGB 15.2 g/dL (12.0-15.0); MCH 31.9 pg (27.0-32.0); MCV 96.6 fL (80.0-97.0); Mean Platelet Volume 13.3 fL (9.5-12.2); NRBC Per 100 WBC 0 /100 WBCS (0.0-0.0); Platelet Count 169 X 10*3/uL (140-440); RBC 4.76 X 10*6/uL (4.10-5.20); WBC 4.99 X 10*3/uL (4.50-10.00)
== END | disposition home or self-care (01) ==
LOC: LABWHC1 11:45
PROVIDERS: ATTEND Surgery
DX: K81.1 Chronic cholecystitis (principal)
CPT/HCPCS: 36415; 80053; 85027

== ENCOUNTER 2022-03-21 07:50 | Day surgery (SDC) | payer BC ==
--- NOTE | 2022-03-21 07:31 | P.GSHP ---
History of Present Illness H&P Date: 03/21/22 Chief Complaint: Chronic cholecystitis 57-year-old female with complaints of right upper quadrant pain that radiates to the back. Patient with recent findings of gallstones. Pain aggravated by movement at times. Does not seem to be related to eating. No previous trauma. No change in the color of her skin urine or stools. Past Medical History Past Medical History: Hyperlipidemia, Thyroid Disorder Additional Past Medical History / Comment(s): tinnitis History of Any Multi-Drug Resistant Organisms: None Reported Past Surgical History: No Surgical Hx Reported Past Anesthesia/Blood Transfusion Reactions: No Reported Reaction, Motion Sickness Smoking Status: Former smoker - Past Family History Father Family Medical History: Myocardial Infarction ([place]) Mother Family Medical History: Liver Disease Medications and Allergies Home Medications Medication Instructions Recorded Confirmed Type Levothyroxine Sodium [Synthroid] 125 mcg PO DAILY 07/16/15 03/18/22 History Atorvastatin [Lipitor] 40 mg PO HS #30 tablet 08/22/16 03/18/22 Rx Allergies Allergy/AdvReac Type Severity Reaction Status Date / Time No Known Allergies Allergy Verified 03/18/22 14:52 Surgical - Exam Physical exam: General: Well-developed, well-nourished HEENT: Normocephalic, sclerae nonicteric Abdomen: Mild right upper quadrant tenderness, nondistended Extremities: No edema Neuro: Alert and oriented Assessment and Plan (1) Chronic cholecystitis Narrative/Plan: Will proceed with laparoscopic cholecystectomy, possible open at this time. Risks of bleeding, infection, bile leak, bile duct injury, retained common bile duct stone, trocar injury, conversion to an open procedure, hernia, anesthesia related complications were reviewed. The patient understands and wishes to proceed. Status: Acute Code(s): K81.1 - CHRONIC CHOLECYSTITIS SNOMED Code(s): 72832418
[~2022-03-21 07:50] MED LIST: ACETAMINOPHEN TAB 500 MG TAB PO PRN; DEXAMETHASONE SOD PHOSPHATE 4 MG/ML 1 ML VIAL IV ONE; HEPARIN SODIUM,PORCINE/PF 5,000 UNIT/0.5 ML SYRINGE SQ PRN; LACTATED RINGERS 1,000 ML IV SCH; LIDOCAINE 1% (10MG/ML) FOR IV START INTRADERMA PRN; MIDAZOLAM 2 MG/2 ML VIAL IV PRN; ONDANSETRON 4 MG/2 ML VIAL IVP ONE
[2022-03-21] MEDS ORDERED: ACETAMINOPHEN TAB 500 MG TAB ONE (08:20)
[2022-03-21] MEDS ORDERED: LIDOCAINE 2% INJ 20 MG/ML (2 ML VIAL) ONE (09:12)
[2022-03-21] MEDS ORDERED: ROCURONIUM 10 MG/ML (5 ML VIAL) IV ONE (09:12)
[2022-03-21] MEDS ORDERED: fentaNYL (PF) 50 MCG/ML 2 ML AMP ONE (09:12)
[2022-03-21] MEDS ORDERED: GLYCOPYRROLATE 0.2 MG/ML 2 ML VIAL ONE (09:12)
[2022-03-21] MEDS ORDERED: PROPOFOL 10 MG/ML 20 ML VIAL IV ONE (09:12)
[2022-03-21] MEDS ORDERED: MIDAZOLAM 2 MG/2 ML VIAL ONE (09:12)
[2022-03-21] MEDS ORDERED: ePHEDrine 50 MG/ML 1 ML VIAL ONE (09:12)
[2022-03-21] MEDS ORDERED: NEOSTIGMINE 1 MG/ML 10 ML VIAL ONE (09:12)
[2022-03-21] MEDS ORDERED: SUCCINYLCHOLINE CHLORIDE 200 MG/10 ML VIAL IV ONE (09:12)
[2022-03-21] MEDS ORDERED: BUPIVACAINE (PF) 0.25% 30 ML VIAL SQ ONE (09:17)
--- NOTE | 2022-03-21 10:25 | P.OP ---
Date of Procedure: 03/21/22 Procedure(s) Performed: PREOPERATIVE DIAGNOSIS: Chronic cholecystitis POSTOPERATIVE DIAGNOSIS: Same PROCEDURE: Laparoscopic cholecystectomy SURGEON: Mushtaq EBL: Minimal see anesthesia record ANESTHESIA: Gen. COMPLICATIONS: None OPERATIVE PROCEDURE: The patient was brought and placed on the operating room table in the supine position. The patient was placed under general anesthesia at that time. The abdomen was prepped and draped in the usual sterile fashion. A small vertical infraumbilical incision was made. The fascia was grasped with the Joselin forceps. The fascia was retracted anteriorly. The Veress needle was advanced into the peritoneal cavity. The saline drop test was normal. Insufflation took place up to 15 mmHg. A 5 mm optical trocar was advanced and the peritoneal cavity. 2 additional 5 mm trochars were placed in the right upper quadrant under direct visualization. A 12 mm trocar was advanced into the epigastric incision site. The gallbladder was retracted superiorly and laterally. The peritoneum overlying the infundibulum was bluntly dissected. The patient's cystic duct was visualized. The junction between the cystic duct common and hepatic duct was identified. The critical view of safety was achieved after blunt dissection. The cystic duct was then divided after placement of 3 12 mm clips on the patient's side and one on the specimen side. The cystic artery was identified and clipped as well. A small vessel was seen along the gallbladder fossa and clipped as well. The gallbladder was then removed from the liver bed using electrocautery. The gallbladder was then removed from the epigastric trocar site with an Endo Catch bag. The gallbladder fossa was irrigated with saline. There was no evidence of any bleeding or biliary drainage seen. The fascia at the 12 millimeter site was closed using a Shmuel-Ondina 0 Vicryl stitch. The trochars were then removed. The skin at all 4 sites was closed using a 4-0 Monocryl stitch. Skin glue was utilized on the incision sites. At the end of this procedure the sponge and needle counts were correct. DISPOSITION: Stable to the recovery room
[2022-03-21 10:35] VITALS: TEMP 97
[2022-03-21] MEDS: HYDROmorphone 0.5 MG/0.5 ML SYRINGE IVP PRN ×3 (10:41→11:20)
[2022-03-21] MEDS ORDERED: KETOROLAC 15 MG/ML 1 ML VIAL IVP ONE (11:16)
[2022-03-21] MEDS ORDERED: SODIUM CHLORIDE 0.9% 1,000 ML IV ONE ×2 (11:17)
[2022-03-21] MEDS ORDERED: ACETAMINOPHEN TAB 325 MG TAB PO SCH (12:00)
[2022-03-21 12:31] VITALS: RESP 20
[2022-03-21 12:38] VITALS: BP 145/85; PULSE 65
[2022-03-21] MEDS ORDERED: IBUPROFEN 600 MG TAB PO SCH (13:30)
== END 2022-03-21 12:40 ==
LOC: OR 07:50
PROVIDERS: ATTEND Surgery
DX: K80.10 Calculus of gallbladder with chronic cholecystitis without obstruction (principal); E78.5 Hyperlipidemia, unspecified; E07.9 Disorder of thyroid, unspecified; Z87.891 Personal history of nicotine dependence; Z82.49 Family history of ischemic heart disease and other diseases of the circulatory system; Z83.79 Family history of other diseases of the digestive system; Z79.899 Other long term (current) drug therapy
CPT/HCPCS: 88304; 47562; J2250; J0330; J1100; J2710; J0690; J2405; J3010; J1885; J2704; J1170; J1644; J2001

== ENCOUNTER → 2023-11-24 | Outpatient (CLI) | payer BC ==
[2023-11-24 15:33] LABS: Basophils # (A) 0.06 X 10*3/uL (0.00-0.10); Basophils % (A) 1.6 %; Eosinophils # (A) 0.24 X 10*3/uL (0.04-0.35); Eosinophils % (A) 6.3 %; HCT 43.5 % (37.2-46.3); HGB 13.8 g/dL (12.0-15.0); Lymphocytes # (A) 1.35 X 10*3/uL (0.90-5.00); Lymphocytes % (A) 35.5 %; MCH 31.4 pg (27.0-32.0); MCHC 31.7 g/dL (32.0-37.0); MCV 98.9 FL (80.0-97.0); Monocytes # (A) 0.25 X 10*3/uL (0.20-1.00); Monocytes % (A) 6.6 %; NRBC Per 100 WBC 0 X 10*3/uL (0.00-0.01); Neutrophils # (A) 1.89 X 10*3/uL (1.80-7.70); Neutrophils % (A) 49.7 %; Platelet Count 162 X 10*3/uL (140-440); RDW 14.4 % (11.5-14.5)
[2023-11-24 15:42] LABS: ALT 36 U/L (8-44); AST 37 U/L (13-35); Albumin/Globulin Ratio 2.08 Ratio (1.60-3.17); Alkaline Phosphatase 58 U/L (41-126); BUN/Creat Ratio 7.91 Ratio (12.00-20.00); Blood Urea Nitrogen 8.7 mg/dL (9.0-27.0); Calcium 9.1 mg/dL (8.7-10.3); Carbon Dioxide 26.4 mmol/L (21.6-31.8); Chloride 104 mmol/L (96-109); Chol/HDL Ratio 7.28 Ratio; Globulin 2.4 g/dL (1.6-3.3); Glucose 95 mg/dL (70-110); LDL Cholesterol,Calculated 406.7 mg/dL (0.0-131.0); Potassium 4.2 mmol/L (3.5-5.5); Sodium 142 mmol/L (135-145); Total Bilirubin 0.5 mg/dL (0.3-1.2); Total Protein 7.4 g/dL (6.2-8.2)
== END | disposition home or self-care (01) ==
LOC: LABWHC1 09:39
PROVIDERS: ATTEND Family Medicine
DX: E78.2 Mixed hyperlipidemia (principal); E03.9 Hypothyroidism, unspecified
CPT/HCPCS: 36415; 80053; 80061; 84443; 85025